=== PATIENT | female | born 1940 | race Caucasian/White ===

== ENCOUNTER → 2018-12-04 10:31 | Outpatient (CLI) | payer OTHER, SELFPAY ==
--- NOTE | 2018-12-04 | DI.RAD.S_ITS ---
PROCEDURE: XR KNEE RT 3V INDICATIONS: right knee pain TECHNIQUE: 3 views of the knee were acquired. COMPARISON: None. FINDINGS: Bones: No fractures or dislocations. No suspicious bony lesions. Mild tricompartmental knee joint narrowing with periarticular osteophyte formation. Soft tissues: No joint effusion. No suspicious soft tissue calcifications. Vascular calcifications indicate atherosclerosis. IMPRESSION: Mild tricompartmental knee joint narrowing with periarticular osteophyte formation. Dictated by: Uri KILPATRICK Interpreted: Jessica Stephens MD on 12/04/2018 at 11:11 Approved by: Jessica Stephens M.D. on 12/04/2018 at 13:52
--- NOTE | 2018-12-04 | DI.RAD.S_ITS ---
PROCEDURE: XR KNEE LT 3V INDICATIONS: BILATERAL KNEE PAIN TECHNIQUE: 3 views of the knee were acquired. COMPARISON: [facility], [place], XR KNEE RT 3V, 12/04/2018, 10:38. FINDINGS: Bones: No fractures or dislocations. No suspicious bony lesions. Mild narrowing of the medial femoral tibial joint and tricompartmental periarticular osteophyte formation. Soft tissues: No joint effusion. No suspicious soft tissue calcifications. Vascular calcifications indicate atherosclerosis. IMPRESSION: Mild knee joint degeneration. Dictated by: Uri KILPATRICK Interpreted: Jessica Stephens MD on 12/04/2018 at 11:29 Approved by: Jessica Stephens M.D. on 12/04/2018 at 13:52
== END ==
PROVIDERS: PCP Nurse Practitioner Family; Visit Provider Nurse Practitioner Family
DX: M25.561 Pain in right knee (principal); M25.562 Pain in left knee; M17.12 Unilateral primary osteoarthritis, left knee; M25.761 Osteophyte, right knee
CPT/HCPCS: 73562